=== PATIENT | male | born 1985 | race Two or more races ===

== ENCOUNTER 2022-11-03 21:11 | Emergency (ER) | payer OTHER ==
[~2022-11-03] VITALS: Ht 180.3 cm; Wt 91.8 kg
[2022-11-03 22:48] VITALS: BP 128/84
[2022-11-04 02:07] LABS: Urine Bacteria FEW /hpf (None Seen); Urine Blood 2+ /uL (Negative); Urine Mucus MODERATE (None Seen); Urine Specific Gravity 1.015 (1.001-1.035); Urine WBC 21 /hpf (0 - 3)
[2022-11-04 02:43] LABS: Basophils % (auto) 0.4 % (0.0-2.0); Eosinophils # (auto) 0 10 ^3/uL (0-0.8); Neutrophils # (auto) 11.3 10 ^3/uL (1.6-8.6)
[2022-11-04 02:44] LABS: Basophils # (auto) 0 10 ^3/uL (0-0.2); Eosinophils % (auto) 0.1 % (0.0-7.0); Hematocrit 43.8 % (41.0-53.0); Hemoglobin 13.4 g/dL (13.5-17.5); Lymphocytes # (auto) 1.2 10 ^3/uL (0.4-5.4); Lymphocytes % (auto) 9.4 % (10.0-50.0); Mean Corpuscular Hemoglobin 17.8 pg (28.0-32.0); Mean Corpuscular Hgb Conc. 30.6 g/dL (32.0-36.0); Mean Corpuscular Volume 58.2 fL (80.0-100.0); Monocytes # (auto) 0.5 10 ^3/uL (0-1.3); Monocytes % (auto) 3.5 % (0.0-12.0); Neutrophils % (auto) 86.6 % (37.0-80.0); Nucleated Red Blood Cells % 0.1 %; Red Blood Cells 7.52 10^6/uL (4.5-5.90); Red Cell Distribution Width 17.2 % (11.8-14.3)
[2022-11-04 02:55] LABS: Albumin 4.2 g/dL (3.4-5.0); BUN/Creatinine Ratio 10.4; Calcium 9.5 mg/dL (8.5-10.1); Potassium 4.3 mmol/L (3.5-5.1)
[2022-11-04 02:58] LABS: Bilirubin, Total 0.8 mg/dL (0.2-1.0); Total Protein 8.1 g/dL (6.4-8.2)
[2022-11-04] MEDS ORDERED: FAMO20TA10 PO (03:16)
[2022-11-04] MEDS ORDERED: MAALOX PLUS or MAALOX 30 ML PO ONE (03:30)
[2022-11-04] MEDS ORDERED: PERCOT PO (06:58)
[2022-11-04] MEDS ORDERED: CIPR-173 PO (06:58)
== END 2022-11-04 08:19 | disposition left against medical advice (07) ==
LOC: ER 21:11
DX: K29.70 Gastritis, unspecified, without bleeding (principal)
CPT/HCPCS: 36415; 71045; 74176; 80053; 81001; 83690; 85025

== ENCOUNTER 2025-08-26 05:18 | Emergency (ER) | payer OTHER, MEDICAID ==
[~2025-08-26] VITALS: Ht 177.8 cm; Wt 94.6 kg
[~2025-08-26 05:18] MED LIST: CIPR-173 PO; FAMO20TA10 PO; PERCOT PO
[2025-08-26 06:24] LABS: Chloride 101 mmol/L (98-107); Potassium 4.1 mmol/L (3.5-5.1)
[2025-08-26 06:25] LABS: Anion Gap 9 (5-15); Calcium 9.2 mg/dL (8.7-10.4); Carbon Dioxide 26 mmol/L (20-31)
[2025-08-26 06:26] LABS: Sodium 136 mmol/L (136-145)
[2025-08-26 06:30] LABS: BUN/Creatinine Ratio 7.1 (10.0-20.0)
[2025-08-26 06:32] LABS: Blood Urea Nitrogen 7 mg/dL (9-23); Glucose 139 mg/dL (74-106)
[2025-08-26 06:33] LABS: Hematocrit 40.7 % (41.0-53.0); Hemoglobin 12.9 g/dL (13.5-17.5); Mean Corpuscular Hemoglobin 18.4 pg (28.0-32.0); Mean Corpuscular Volume 58.0 fL (80.0-100.0); Nucleated Red Blood Cells % 0.2 %
--- NOTE | 2025-08-26 06:46 | ED.PDOC ---
GI ASSESSMENT HPI Comments 39 year old male presents to the ED with a chief complaint of abdominal pain onset 1 day. Patient states he began experiencing RLQ pain, non radiating, as well as nausea/vomiting since last night. He noticed pain worsens when sitting down. Denies fever, chills, headache, dizziness, diarrhea, constipation, dysuria, hematuria, hematemesis, chest pain, shortness of breath. No other symptoms or modifying factors present at this time. Chief Complaint: Abdominal Pain Time Seen by MD: 06:30 Primary Care Provider: ALIX Bush Notes: Medications, Allergies Allergies: Coded Allergies: NO KNOWN ALLERGIES (Unverified , 11/03/22) Home Meds Active Scripts Ciprofloxacin Hcl (Cipro) 500 Mg Tab, 500 MG PO BID for 7 Days, #14 TAB Prov:RADHA ALBERTO MD 11/04/22 Oxycodone W/ Acetaminophen (Percocet 5/325MG) 1 Tab Tb, 1 TAB PO BID for 7 Days, #14 TAB Prov:RADHA ALBERTO MD 11/04/22 Famotidine (PEPCID TABLET) 20 Mg Tb, 1 TAB PO BID PRN, #40 TAB 5 Refills Prov:DASHAWN RAMIREZ 11/04/22 Information Source: Patient Mode of Arrival: Ambulatory Timing: Days Duration: Since onset Prehospital treatment: None Quality: Sharp Severity: Moderate Recent: None Recent Hx of: None Pain Location: RLQ Modifying Factors: Nothing Associated sign and symptoms: Nausea, Vomiting, Abdominal Pain Past Medical History PAST MEDICAL HISTORY: Denies Surgical History: Denies all surgeries Family History Family History: Reviewed,noncontributory to illness, No family hx of Cancer, No family hx of DM, No family hx of Heart delilah, No family hx of HTN, No family hx ofKidney delilah, No family hx of Liver delilah, No family hx of Lung delilah, No family hx of Stroke Social History Smoker: Non-Smoker Alcohol: Denies ETOH Use Drugs: Denies Drug Use Lives In: Home Constitutional: denies: chills, diaphoresis, fatigue, fever, malaise, sweats, weakness, others EENTM: denies: blurred vision, double vision, ear bleeding, ear discharge, ear drainage, ear pain, ear ringing, eye pain, eye redness, hearing loss, mouth pain, mouth swelling, nasal discharge, nose bleeding, nose congestion, nose pain, photophobia, tearing, throat pain, throat swelling, voice changes, others Respiratory: denies: cough, hemoptysis, orthopnea, SOB at rest, shortness of breath, SOB with excertion, stridor, wheezing, others Cardiovascular: denies: chest pain, dizzy spells, diaphoresis, Dyspnea on exertion, edema, irregular heart beat, left arm pain, lightheadedness, palpitations, PND, syncope, others Gastrointestinal: reports: abdominal pain (RLQ), nausea, vomiting; denies: abdomen distended, blood streaked bowels, constipated, diarrhea, dysphagia, difficulty swallowing, hematemesis, melena, poor appetite, poor fluid intake, rectal bleeding, rectal pain, others Genitourinary: denies: burning, dysuria, flank pain, frequency, hematuria, incontinence, penile discharge, penile sore, pain, testicle pain, testicle swelling, urgency, others Neurological: denies: dizziness, fainting, headache, left sided numbness, left sided weakness, numbness, paresthesia, pre-existing deficit, right sided numbness, right sided weakness, seizure, speech problems, tingling, tremors, weakness, others Musculoskeletal: denies: back pain, gout, joint pain, joint swelling, muscle pain, muscle stiffness, neck pain, others Integumetry: denies: bruises, change in color, change in hair/nails, dryness, laceration, lesions, lumps, rash, wounds, others Allergic/Immunocompromised: denies: Difficulty Healing, Frequent Infections, Hives, Itching, others Hematologic/Lymphatic: denies: anemia, blood clots, easy bleeding, easy bruising, swollen glands, others Endocrine: denies: excessive hunger, excessive sweating, excessive thirst, excessive urination, flushing, intolerance to cold, intolerance to heat, unexplained weight gain, unexplained weight loss, others Psychiatric: denies: anxiety, bipolar disorder, depression, hopeless, panic disorder, schizophrenia, sleepless, suicidal, others All Other Systems: Reviewed and Negative Physical Exam General Appearance: Normal HEENT: Normal ENT Inspection, Pharynx Normal, TMs Normal Neck: Full Range of Motion, Non-Tender, Normal, Normal Inspection Respiratory: Chest Non-Tender, Lungs Clear, No Accessory Muscle Use, No Respiratory Distress, Normal Breath Sounds Cardiovascular: No Edema, No JVD, No Murmur, No Gallop, Normal Peripheral Pulses, Regular Rate/Rhythm Breast Exam: Deferred Gastrointestinal: No Organomegaly, No Pulsatile Mass, Normal Bowel Sounds, RLQ (tenderness), Tenderness (RLQ) Genitalia: Deferred Pelvic: Deferred Rectal: Deferred Extremities: No calf tenderness, Normal capillary refill, Normal inspection, Normal range of motion, Non-tender, No pedal edema Musculoskeletal : Apperance: Normal Neurologic: Alert, immigration coordinator II-XII nml as Tested, No Motor Deficits, Normal Affect, Normal Mood, No Sensory Deficits Cerebellar Function: Normal Reflexes: Normal Skin: Dry, Normal Color, Warm Lymphatic: No Adenopathy Was a procedure done? Was a procedure done?: No GI differential Dx Differential Diagnosis: Appendicitis, Gastritis/PUD, Gastroenteritis, UTI, Electrolyte Imbalance, Bacterial, Viral X-Ray, Labs, Meds, VS Vital Signs Date Time Temp Pulse Resp B/P (MAP) Pulse Ox O2 Delivery O2 Flow Rate FiO2 08/26/25 07:29 Room Air* 0 21 08/26/25 07:27 66 18 156/107 (123) 100 08/26/25 07:25 66 16 156/107 08/26/25 05:19 97.8 68 20 150/105 98 97.8 Lab Test 08/26/25 08:57 08/26/25 05:46 Range/Units Lactic Acid Level 1.7 0.4-2.0 mmol/L White Blood Count 11.3 H 4.4-10.8 10^3/uL Red Blood Count 7.01 H 4.5-5.90 10^6/uL Hemoglobin 12.9 L 13.5-17.5 g/dL Hematocrit 40.7 L 41.0-53.0 % Mean Corpuscular Volume 58.0 L 80.0-100.0 fL Mean Corpuscular Hemoglobin 18.4 L 28.0-32.0 pg Mean Corpuscular Hemoglobin Concent 31.7 L 32.0-36.0 g/dL Red Cell Distribution Width 16.7 H 11.8-14.3 % Platelet Count 231 140-450 10^3/uL Mean Platelet Volume 8.9 6.9-10.8 fL Neutrophils (%) (Auto) 79.2 37.0-80.0 % Lymphocytes (%) (Auto) 13.9 10.0-50.0 % Monocytes (%) (Auto) 5.7 0.0-12.0 % Eosinophils (%) (Auto) 0.9 0.0-7.0 % Basophils (%) (Auto) 0.3 0.0-2.0 % Neutrophils # (Auto) 8.9 H 1.6-8.6 10 ^3/uL Lymphocytes # (Auto) 1.6 0.4-5.4 10 ^3/uL Monocytes # (Auto) 0.6 0-1.3 10 ^3/uL Eosinophils # (Auto) 0.1 0-0.8 10 ^3/uL Basophils # (Auto) 0 0-0.2 10 ^3/uL Nucleated Red Blood Cells 0.2 % Platelet Estimate Adequate Large Platelets Few Hypochromasia (manual) Moderate Anisocytosis (manual) Slight Microcytosis Marked Sodium Level 136 136-145 mmol/L Potassium Level 4.1 3.5-5.1 mmol/L Chloride Level 101 98-107 mmol/L Carbon Dioxide Level 26 20-31 mmol/L Anion Gap 9 5-15 Blood Urea Nitrogen 7 L 9-23 mg/dL Creatinine 0.98 0.700-1.30 mg/dL Glomerular Filtration Rate Calc 102 >90 mL/min BUN/Creatinine Ratio 7.1 L 10.0-20.0 Serum Glucose 139 H 74-106 mg/dL Calcium Level 9.2 8.7-10.4 mg/dL Current Medications Medications (Trade) Dose Ordered Sig/Wing Route Start Time Stop Time Status Last Admin Sodium Chloride 1,000 ml @ 1,000 mls/hr Q1H ONCE IV 08/26/25 06:45 08/26/25 07:44 DC 08/26/25 07:25 Morphine Sulfate 4 mg ONCE ONCE IV 08/26/25 06:45 08/26/25 06:46 DC 08/26/25 07:25 Ondansetron HCl (Zofran) 4 mg ONCE ONCE IV 08/26/25 06:45 08/26/25 06:46 DC 08/26/25 07:24 Ketorolac Tromethamine (Toradol Injection) 15 mg ONCE ONCE IV 08/26/25 08:45 08/26/25 08:46 DC 08/26/25 09:10 Ceftriaxone Sodium 50 ml @ 100 mls/hr ONCE ONCE IV 08/26/25 08:45 08/26/25 09:14 DC 08/26/25 09:10 Time of 1ST Reevaluation: 07:00 Reevaluation 1ST: Unchanged Patient Education/Counseling: Diagnosis, Treatment, Prognosis Family Education/Counseling: No Family Present SEPSIS Sepsis Screen Date sepsis recognized/suspect: Aug 26, 2025 Time Sepsis recognized/suspect: 521 Recent Procedure: No On Antibiotic Therapy: No Respiratory Rate >20: No Heart Rate >90: No Temp<36 C (96.8 F) or >38.3 C: No SBP <90 or MAP <65 mmHG: No New Acute Mental Status Change: No Is the patient on CPAP, BIPAP,: No Physician Orders Urinalysis (08/26/25 05:29) Ct Ab Pel With Iv Con Only (08/26/25 06:33) Blood Culture (08/26/25 08:34) Imaging Transfer Request (08/26/25 09:40) Vital Signs Date Time Temp Pulse Resp B/P (MAP) Pulse Ox O2 Delivery O2 Flow Rate FiO2 08/26/25 07:29 Room Air* 0 21 08/26/25 07:27 66 18 156/107 (123) 100 08/26/25 07:25 66 16 156/107 08/26/25 05:19 97.8 68 20 150/105 98 97.8 Laboratory Tests Test 08/26/25 05:46 08/26/25 08:57 White Blood Count 11.3 10^3/uL (4.4-10.8) H Lactic Acid Level 1.7 mmol/L (0.4-2.0) Medications Medications Dose Ordered Sig/Wing Route Start Time Stop Time Status Last Admin Dose Admin Ceftriaxone Sodium 50 ml @ 100 mls/hr ONCE ONCE IV 08/26/25 08:45 08/26/25 09:14 DC 08/26/25 09:10 Ketorolac Tromethamine 15 mg ONCE ONCE IV 08/26/25 08:45 08/26/25 08:46 DC 08/26/25 09:10 Morphine Sulfate 4 mg ONCE ONCE IV 08/26/25 06:45 08/26/25 06:46 DC 08/26/25 07:25 Ondansetron HCl 4 mg ONCE ONCE IV 08/26/25 06:45 08/26/25 06:46 DC 08/26/25 07:24 Sodium Chloride 1,000 ml @ 1,000 mls/hr Q1H ONCE IV 08/26/25 06:45 08/26/25 07:44 DC 08/26/25 07:25 Departure 1 Departure Time of Disposition: 09:52 ([place] authorization: [id number] presented with abdominal pain that was concerning for possible appendicits, gastritis, cholecystitis, colitis, gastroenteritis, sbo, or orther possible surgical emergency. Data: 1. I ordered and reviewed the result of at least 3 labs including a CBC, BMP, and Urinalysis. 2. I independently interpreted the following tests: CT Abdomen and Pelvis is concerning for ureteral colic with possible pyelonephritis .Risk:This patient has a high risk of morbidity due to further diagnostic testing or treatment and may suffer from an acute abdominal process disorder. Workup reveals ureteral colic intractable abdominal pain possible pyelonephritis and incidental abdominal masses and patient should be admitted for further workup. and possible expert consultation. ) Impression: Primary Impression: Ureteral colic Additional Impressions: Intractable abdominal pain Abdominal mass Disposition: ADMITTED INPATIENT Admit to: Med Surg Condition: Guarded Critical Care Note Critical Care Time?: Yes Critical care comment: Intractable abdominal pain Authorized and Performed by: Martha Staples MD Total critical care time: Approximately 39 minutes Due to a high probability of clinically significant, life threatening deterioration, the patient required my highest level of preparedness to intervene emergently and I personally spent this critical care time directly and personally managing the patient. This critical care time included obtaining a history; examining the patient; pulse oximetry; ordering and review of studies; arranging urgent treatment with development of a management plan; evaluation of patient's response to treatment; frequent reassessment; and, discussions with other providers. This critical care time was performed to assess and manage the high probability of imminent, life-threatening deterioration that could result in multi-organ failure. It was exclusive of separately billable procedures and treating other patients and teaching time. Please see my other sections and the rest of the note for further information on patient assessment and treatment. Stability Stability form required: No Heart Score Heart Score: Heart Score Response (Comments) Value History N/A 0 EKG N/A 0 Age N/A 0 Risk Factors N/A 0 Troponin N/A 0 Total 0 I personally scribed for MARTHA STAPLES MD ([email or web address]) on 08/26/25 at 06:46. Electronically submitted by Bonny Sosa ([email or web address]). MARTHA STAPLES MD Aug 26, 2025 06:46
[2025-08-26] MEDS: ONDANSETRON HCL 4 MG/2 ML VIAL IV ONE (07:24)
[2025-08-26] MEDS: MORPHINE SULFATE 4 MG/ML SYR/VIAL IV ONE (07:25)
[2025-08-26] MEDS: SODIUM CHLORIDE 0.9% 1,000 ML IV ONE ×2 (07:25→10:05)
[2025-08-26] MEDS: IOHEXOL 300 MG/ML 100ML BOTTLE IJ ONE (07:26)
--- NOTE | 2025-08-26 08:20 | DVH ---
Exam: CT CT AB PEL WITH IV CON ONLY History: rlq pain. Comparison Study: CT ABD PELVIS WO CONTRAST on DOS: 11/04/22. Contrast: Type of contrast: Omnipaque 300 Contrast injected: 100 mL Contrast wasted: 0 TECHNIQUE: CT of the abdomen pelvis was performed with intravenous contrast. Coronal sagittal reformatted images are submitted. Radiation Dose Information: CT Dose: CTDI volume is 13.6 mGy. Dose-length product is 891.99 mGy*cm FINDINGS: Lung Bases: No acute or significant lung base finding. Bilateral lower lobe atelectasis. Normal heart size. No pleural or pericardial effusion. Liver: The liver is normal in size. Normal vascular enhancement. There is a low-density lesion in the right hepatic lobe measuring 9 mm which is too small to characterizer. There is an enhancing mass in the right hepatic lobe anteriorly measuring 10 x 10 mm which may reflect a hemangioma. There is another area of ill-defined enhancement in the posterior right hepatic lobe measuring 1.2 cm. Gallbladder and Biliary Tree: The gallbladder is unremarkable. No biliary ductal dilatation. Spleen: Measures 13.0 cm size. No splenic lesion. Pancreas: The pancreas is normal in appearance without focal lesions or abnormal enhancement. Adrenal Glands: Unremarkable Kidneys: There is diminished enhancement in the right kidney compared to the left and more patchy low enhancement in the interpolar right kidney. There is a 4 mm nonobstructing proximal right ureteral calculus. There is a 2 mm nonobstructive lower pole calculus. The left kidney is unremarkable. Bladder: Unremarkable Bowel: The stomach is grossly normal in appearance. Small bowel and colon are normal in caliber and distribution. The appendix is visualized with no secondary findings of acute appendicitis identified. Peritoneum: No pneumoperitoneum. Lymphadenopathy: No mesenteric, retroperitoneal or periportal lymphadenopathy. Abdominal Wall and Mesentery: Unremarkable. Vasculature: The visualized abdominal aorta is normal in size and caliber. Abdominal and pelvic vessels demonstrate normal enhancement. Pelvic Organs: Unremarkable Musculoskeletal: No aggressive focal bony lesions, acute fractures or dislocation. Soft tissues: Unremarkable. IMPRESSION: 1. Diminished enhancement of the right kidney compared to the left with more focal low-attenuation in the interpolar right kidney. Although there is a 4 mm proximal right ureteral calculus, there is no dilatation of the right ureter or right renal pelvis to suggest obstruction at this time. Pyelonephritis and pyelitis should be considered in the appropriate clinical setting. A short-term follow-up CT may be obtained to exclude a developing obstruction from the right ureteral calculus. Punctate additional 2 mm calculus in the lower pole of the right kidney. 2. Enhancing mass in the right hepatic lobe measuring 10 x 10 mm which may reflect a hemangioma. Additional ill-defined area of enhancement in the posterior right hepatic lobe measuring 1.2 cm. These can be further evaluated with nonemergent MRI of the abdomen with and without contrast. 3. Splenomegaly.
[2025-08-26 08:41] LABS: Anisocytosis Slight
[2025-08-26] MEDS: KETOROLAC TROMETH 30 MG/ML 1ML VIAL IV ONE (09:10)
[2025-08-26 11:18] VITALS: BP 135/86; PULSE 72; RESP 20; TEMP 98.1; O2SAT 97
[2025-08-26] MEDS ORDERED: ONDANSETRON HCL 4 MG/2 ML VIAL IV ONE (11:30)
[2025-08-26] MEDS ORDERED: MORPHINE SULFATE 4 MG/ML SYR/VIAL IV ONE (11:30)
== END 2025-08-26 11:32 | disposition short-term general hospital (02) ==
LOC: ER 05:18
DX: N20.1 Calculus of ureter (principal); R10.84 Generalized abdominal pain; R19.00 Intra-abdominal and pelvic swelling, mass and lump, unspecified site; Z79.899 Other long term (current) drug therapy
CPT/HCPCS: 36415; 74177; 80048; 83605; 85025; 87040; 96361; 96365; 96375; 99285; J0696; J1885; J2270; J2405; J7030; Q9967